=== PATIENT | female | born 1995 | race Caucasian/White ===

== ENCOUNTER 2018-09-16 19:45 | Observation (INO) | payer MEDICAID, OTHER ==
[2018-09-16 14:37] VITALS: O2SAT 99
[2018-09-16 21:02] VITALS: BP 131/88; PULSE 108; RESP 20; TEMP 98.2
== END 2018-09-16 21:34 | disposition home or self-care (01) | DRG 833 ==
LOC: OB 20:28
PROVIDERS: ADMIT Family Medicine; ATTEND Family Medicine
DX: O47.1 False labor at or after 37 completed weeks of gestation (principal); Z3A.38 38 weeks gestation of pregnancy
CPT/HCPCS: 59025

== ENCOUNTER 2018-09-19 04:46 | Inpatient (IN) | payer MEDICAID ==
[2018-09-19] MEDS: SODIUM CHLORIDE 0.9% FLUSH 10 ML SOL IV SCH ×3 (04:55→21:15)
[2018-09-19] MEDS: LACTATED RINGERS 1,000 ML IV SCH ×4 (05:07→15:22)
[2018-09-19] MEDS ORDERED: NALOXONE HYDROCHLORIDE 0.4 MG/ML SOL IV PRN (05:17)
[2018-09-19] MEDS ORDERED: OXYTOCIN 10000 MU/ML SOL IM PRN (05:17)
[2018-09-19] MEDS ORDERED: LACTATED RINGERS 1,000 ML IV PRN (05:17)
[2018-09-19] MEDS ORDERED: DIPHENHYDRAMINE 50 MG/ML SOL IV PRN (05:17)
[2018-09-19] MEDS ORDERED: EPHEDRINE SULFATE 50 MG/ML SOL IV PRN (05:17)
[2018-09-19] MEDS ORDERED: CARBOPROST 250 MCG/ML SOL IM PRN (05:17)
[2018-09-19] MEDS ORDERED: FENTANYL 100MCG/2ML SOL IV PRN (05:17)
[2018-09-19] MEDS ORDERED: SODIUM CHLORIDE 0.9% FLUSH 10 ML SOL IV PRN (05:17)
[2018-09-19] MEDS ORDERED: MEPIVACAINE HCL 1% MPF 30 ML/VIAL SOL INFIL PRN (05:17)
[2018-09-19] MEDS ORDERED: METHYLERGONOVINE MALEATE 0.2 MG/ML SOL IM PRN (05:17)
[2018-09-19] MEDS ORDERED: NALBUPHINE HCL 20 MG/ML SOL IV PRN (05:17)
[2018-09-19 05:23] LABS: BASOPHILS % (AUTO) 1 % (0-3); EOSINOPHILS % (AUTO) 0 % (0-9); HEMATOCRIT 39 % (35-47); HEMOGLOBIN 13.1 gm/dl (12.0-15.5); LYMPHOCYTES % (AUTO) 11.3 % (10-50); MEAN CORPUSCULAR HEMOGLOBIN 29.9 pg (27.0-32.0); MEAN CORPUSCULAR HGB CONC 33.4 gm/dl (32.0-36.0); MEAN CORPUSCULAR VOLUME 89 fL (81-99); MONOCYTES % (AUTO) 8.9 % (0-12); NEUTROPHILS % (AUTO) 78.8 % (37-80)
[2018-09-19] MEDS ORDERED: LIDOCAINE HCL 2% MPF 10 ML SOL ONE (05:24)
[2018-09-19] MEDS ORDERED: FENTANYL 250 MCG/ 5ML SOL ONE (05:36)
[2018-09-19] MEDS ORDERED: ROPIVACAINE HYDROCHLORIDE 5 MG/ML SOL ONE (05:37)
[2018-09-19] MEDS ORDERED: SODIUM CHLORIDE 0.9% 500 ML 500 ML IV ONE (13:32)
[2018-09-19] MEDS ORDERED: BENZOCAINE/MENTHOL 1 SPR TOP PRN (13:33)
[2018-09-19] MEDS ORDERED: APAP/HYDROCODONE 1 EACH TABLET PO PRN (13:33)
[2018-09-19] MEDS ORDERED: FLEET ENEMA PR PRN (13:33)
[2018-09-19] MEDS ORDERED: METHYLERGONOVINE MALEATE 0.2 MG TAB PO PRN (13:33)
[2018-09-19] MEDS ORDERED: TEMAZEPAM 15MG 15 MG CAP PO PRN (13:33)
[2018-09-19] MEDS ORDERED: BISACODYL 10 MG SUP PR PRN (13:33)
[2018-09-19] MEDS: IBUPROFEN 600 MG TAB PO PRN ×2 (14:39→21:01)
[2018-09-19] MEDS: WITCH HAZEL 1 EA PAD TOP PRN ×2 (15:59→19:49)
[2018-09-19] MEDS ORDERED: SODIUM CHLORIDE 0.9% 1000ML 1,000 ML IV ONE (16:10)
[2018-09-19] MEDS: DOCUSATE SODIUM 100 MG SGL PO SCH (21:00)
[2018-09-20] MEDS: WITCH HAZEL 1 EA PAD TOP PRN ×5 (00:23→20:15)
[2018-09-20] MEDS: IBUPROFEN 600 MG TAB PO PRN ×3 (04:44→19:43)
[2018-09-20] MEDS: SODIUM CHLORIDE 0.9% FLUSH 10 ML SOL IV SCH ×2 (04:58→15:30)
[2018-09-20] MEDS: DOCUSATE SODIUM 100 MG SGL PO SCH ×2 (08:36→20:25)
[2018-09-20 12:28] LABS: ABO A; RH TYPE Negative
[2018-09-20 13:15] VITALS: RESP 16
[2018-09-20 20:07] VITALS: O2SAT 98
[2018-09-21] MEDS: IBUPROFEN 600 MG TAB PO PRN (04:32)
[2018-09-21 06:46] VITALS: TEMP 98
[2018-09-21] MEDS: DOCUSATE SODIUM 100 MG SGL PO SCH (09:54)
[2018-09-21 12:15] VITALS: BP 111/76; PULSE 80
== END 2018-09-21 13:40 | disposition home or self-care (01) | DRG 768 ==
LOC: OB 04:46 → OBSVTOIN 04:46
PROVIDERS: ADMIT Family Medicine; ATTEND Family Medicine
PROC: 10E0XZZ Delivery of Products of Conception, External Approach (ICD-10-PCS; principal; 2018-09-19)
PROC: 0DQR0ZZ Repair Anal Sphincter, Open Approach (ICD-10-PCS; 2018-09-19)
PROC: 10907ZC Drainage of Amniotic Fluid, Therapeutic from Products of Conception, Via Natural or Artificial Opening (ICD-10-PCS; 2018-09-19)
PROC: 0W8NXZZ Division of Female Perineum, External Approach (ICD-10-PCS; 2018-09-19)
DX: O80 Encounter for full-term uncomplicated delivery (principal); Z37.0 Single live birth; Z3A.38 38 weeks gestation of pregnancy
CPT/HCPCS: 36415; 85018; 85025; 86900; 86901; 94762; J0670; J2590; J2795; J3010; A9270-GY